=== PATIENT | male | born 1965 | race Hispanic/Latino ===

== ENCOUNTER 2022-12-08 15:01 | Emergency (ER) | payer OTHER ==
[~2022-12-08] VITALS: Ht 157.5 cm; Wt 65.8 kg
[2022-12-08] MEDS ORDERED: ONDANSETRON ODT 4MG TAB SL ONE (16:30)
[2022-12-08] MEDS ORDERED: MORPHINE 4 MG SYG IVP ONE (16:30)
[2022-12-08 17:03] VITALS: BP 115/78
== END 2022-12-08 17:20 | disposition home or self-care (01) ==
LOC: EDH 15:01
DX: S92.009A Unspecified fracture of unspecified calcaneus, initial encounter for closed fracture (principal); Z98.890 Other specified postprocedural states; X58.XXXA Exposure to other specified factors, initial encounter; Y93.I9 Activity, other involving external motion; Y92.89 Other specified places as the place of occurrence of the external cause; Y99.8 Other external cause status
CPT/HCPCS: 99283; 96374; 29515; 73630; J2270